=== PATIENT | male | born 1995 | race Caucasian/White ===

== ENCOUNTER 2024-03-29 01:03 | Emergency (ER) | payer OTHER ==
[2024-03-29] MEDS ORDERED: Boostrix 0.5 ML (Tdap) VIAL (>/=7 yrs of age) ONE (01:33)
== END 2024-03-29 01:46 ==
LOC: NAV ERS 01:03
DX: S01.81XA Laceration without foreign body of other part of head, initial encounter (principal); Z87.891 Personal history of nicotine dependence; W22.8XXA Striking against or struck by other objects, initial encounter; Z23 Encounter for immunization
CPT/HCPCS: 12011; 90471; 90715